=== PATIENT | male | born 1950 | race Caucasian/White ===

== ENCOUNTER → 2017-06-11 | Outpatient (CLI) | payer MEDICARE, OTHER, SELFPAY | PROVIDERS: Family Provider Family Medicine; Visit Provider Family Medicine | DX: G47.30 Sleep apnea, unspecified (principal); I10 Essential (primary) hypertension; R06.83 Snoring | CPT/HCPCS: G0399 ==

== ENCOUNTER → 2018-03-27 14:52 | Outpatient (CLI) | payer MEDICARE, OTHER, SELFPAY ==
--- NOTE | 2018-03-27 15:02 | XR_ITS ---
XR hip RT 2-3V w/pelvis HISTORY: Right hip pain ITS.REASON: RIGHT LUMBAR RADICULOPATHY ORDERING PHYSICIAN: Olu Moreno MD PATIENT AGE: 67 years COMPARISON: None FINDINGS: There are mild osteoarthritic changes of the hips as seen on an AP view of the pelvis with decrease in joint space osteophyte formation and mild sclerosis of acetabular roof. There is mild sclerosis of the right SI joint. No fracture or dislocation. IMPRESSION: Mild osteoarthritis of the hips
--- NOTE | 2018-03-27 15:02 | XR_ITS ---
EXAM: XR lumbar spine min 4V HISTORY: Low back pain ITS.REASON: RIGHT LUMBAR RADICULOPATHY ORDERING PHYSICIAN: Olu Moreno MD PATIENT AGE: 67 years COMPARISON: None FINDINGS: There is normal alignment. Mild degenerative disc disease is present from T12 to S1 with prominent anterior osteophytes of lower thoracic and upper lumbar spine consistent with DISH. There is minimal anterolisthesis of L4 3 mm. No fracture or dislocation. No lytic or blastic change. Mild facet arthritic changes L4-L5 and L5-S1. IMPRESSION: 1. No acute finding. 2. 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 3. Mild facet arthritic changes
== END ==
PROVIDERS: PCP Family Medicine; Visit Provider Family Medicine
DX: M54.16 Radiculopathy, lumbar region (principal); M25.551 Pain in right hip
CPT/HCPCS: 72110; 73502

== ENCOUNTER 2018-05-20 14:00 | Outpatient (RCR) | payer MEDICARE, OTHER, SELFPAY | END 2018-05-20 14:05 | disposition home or self-care (01) | LOC: PT 14:00 | PROVIDERS: Visit Provider Neurological Surgery | DX: M54.5 Low back pain (principal) | CPT/HCPCS: 97010; 97014; 97035; 97110; 97163; G0283 ==

== ENCOUNTER → 2019-11-26 14:42 | Outpatient (CLI) | payer MEDICARE, OTHER, SELFPAY | PROVIDERS: PCP Family Medicine; Visit Provider Family Medicine | DX: Z71.3 Dietary counseling and surveillance (principal); E11.9 Type 2 diabetes mellitus without complications | CPT/HCPCS: 97802 ==

== ENCOUNTER → 2021-03-26 10:27 | Outpatient (CLI) | payer MEDICARE, OTHER, SELFPAY | PROVIDERS: PCP Family Medicine; Visit Provider Nurse Practitioner | DX: Z20.822 Contact with and (suspected) exposure to COVID-19 (principal); U07.1 COVID-19 | CPT/HCPCS: C9803; U0003; U0005 ==

== ENCOUNTER → 2022-05-14 08:26 | Outpatient (CLI) | payer MEDICARE, SELFPAY ==
[2022-05-14 08:36] LABS: Microscopic, Urine URINE MICROSCOPIC (MICROSCOPIC)
[2022-05-14 09:02] LABS: Basophils # 0.1 K/mm3 (0-0.2); Basophils % 1.1 % (0.1-2.0); Eosinophils # 0.1 K/mm3 (0.0-0.4); Eosinophils % 2.1 % (0.1-12.0); Hematocrit 45.6 % (42.0-52.0); Hemoglobin 14.7 g/dL (14.1-18.0); Lymphocytes # 1.6 K/mm3 (0.7-4.5); Lymphocytes % 26.2 % (10-50); Mean Corpuscular HGB Conc 32.3 g/dL (31.8-35.4); Mean Corpuscular Hemoglobin 28.3 pg (27.0-31.2); Mean Corpuscular Volume 87.8 fl (80-94); Mean Platelet Volume 8.7 fl (7.4-10.4); Monocytes # 0.3 K/mm3 (0.1-1.0); Monocytes % 5.4 % (1.7-9.3); Neutrophils % 65.2 % (37.0-80.0); Platelet Count 280 K/mm3 (142-424); Red Blood Count 5.19 M/mm3 (4.60-6.20); Red Cell Distribution Width 14.7 % (11.5-17.5); White Blood Count 6.1 K/mm3 (4.8-10.8)
[2022-05-14 09:16] LABS: Hemoglobin A1C 8.3 % (4.0-6.0)
[2022-05-14 09:26] LABS: Chloride 100 mmol/L (98-107); Potassium 5.1 mmoL/L (3.5-5.1); Sodium 137 mmol/L (136-145)
[2022-05-14 09:28] LABS: Alanine Aminotransferase 31 U/L (12-78); Aspartate Amino Transferase 26 U/L (17-59); Blood Urea Nitrogen 23 mg/dl (9-20); Estimated Glomerular Filt Rate 96 ml/min (>60); GFR (African American) 116 ML/MIN (>60)
[2022-05-14 09:29] LABS: Albumin Level 4.2 g/dl (3.5-5.0); Albumin/Globulin Ratio 1.8 (1.1-1.8); Alkaline Phosphatase 77 U/L (38-126); Anion Gap 11.1 mEq/L (5-15); Calcium 9.4 mg/dl (8.4-10.2); Carbon Dioxide 31 mmol/L (22.0-30.0); Cholesterol 118 mg/dl (140-200); Globulin 2.3 g/dL (1.3-3.2); Glucose 172 mg/dl (74-100); HDL Cholesterol 33 mg/dl (40-60); Total Protein,Serum 6.5 g/dl (6.3-8.2); Triglycerides 127 mg/dl (30-150); VLDL Cholesterol 25 mg/dL (0-40)
[2022-05-14 09:30] LABS: Chol/HDL Ratio 3.6 (1-3.5)
[2022-05-14 09:40] LABS: Direct LDL Cholesterol 65.89 mg/dL (100-129)
[2022-05-14 10:00] LABS: Thyroid Stimulating Hormone 2.03 uIU/mL (0.465-4.68)
[2022-05-14 10:05] LABS: Prostate Specific Ag Screen 0.7 ng/ml (0.0-4.0)
[2022-05-14 10:46] LABS: Appearance,Urine CLEAR (Clear); Blood, Urine Negative (Negative); Color,Urine YELLOW (Yellow); Glucose,Urine (UA) Negative (Negative); Ketones,Urine Negative (Negative); Leukocyte Esterase,Urine Negative (Negative); Nitrate,Urine Negative (Negative); PH,Urine 5.5 (5.0-8.5); Protein,Urine Negative (Negative); Specific Gravity, Urine >= 1.030 (1.005-1.030); Urobilinogen,Urine 0.2 EU/dl (0.2)
[2022-05-14 10:50] LABS: Bilirubin,Urine 1+ (Negative)
[2022-05-14 10:58] LABS: Bacteria,Urine Trace /lpf; Mucus,Urine Trace /lpf; RBC,Urine Occasional #/hpf (0-3); Squamous Epithelial Cell,Urine Occasional #/hpf (0-5)
== END ==
PROVIDERS: PCP Family Medicine; Visit Provider Family Medicine
DX: E78.5 Hyperlipidemia, unspecified (principal); E11.9 Type 2 diabetes mellitus without complications; I10 Essential (primary) hypertension; Z12.5 Encounter for screening for malignant neoplasm of prostate; Z79.84 Long term (current) use of oral hypoglycemic drugs
CPT/HCPCS: 36415; 80053; 80061; 81001; 82043; 83036; 84443; 85025; G0103

== ENCOUNTER → 2022-08-13 09:16 | Outpatient (CLI) | payer MEDICARE, SELFPAY ==
[2022-08-13 11:03] LABS: Chloride 101 mmol/L (98-107); Potassium 5.3 mmoL/L (3.5-5.1); Sodium 138 mmol/L (136-145)
[2022-08-13 11:06] LABS: Alanine Aminotransferase 31 U/L (12-78); Albumin Level 4.1 g/dl (3.5-5.0); Albumin/Globulin Ratio 1.5 (1.1-1.8); Alkaline Phosphatase 78 U/L (38-126); Anion Gap 12.3 mEq/L (5-15); Aspartate Amino Transferase 23 U/L (17-59); Bilirubin,Total 1.1 mg/dl (0.2-1.3); Blood Urea Nitrogen 18 mg/dl (9-20); Calcium 8.8 mg/dl (8.4-10.2); Carbon Dioxide 30 mmol/L (22.0-30.0); Estimated Glomerular Filt Rate 95 ml/min (>60); GFR (African American) 115 ML/MIN (>60); Globulin 2.7 g/dL (1.3-3.2); Glucose 172 mg/dl (74-100); Total Protein,Serum 6.8 g/dl (6.3-8.2)
[2022-08-13 11:07] LABS: Hemoglobin A1C 8.9 % (4.0-6.0)
== END ==
PROVIDERS: PCP Family Medicine; Visit Provider Family Medicine
DX: E11.9 Type 2 diabetes mellitus without complications (principal); Z79.84 Long term (current) use of oral hypoglycemic drugs
CPT/HCPCS: 36415; 80053; 82043; 83036

== ENCOUNTER → 2022-11-13 08:36 | Outpatient (CLI) | payer MEDICARE, SELFPAY ==
[2022-11-13 09:15] LABS: Basophils % 0.4 % (0.1-2.0); Eosinophils # 0.2 K/mm3 (0.0-0.4); Eosinophils % 2.8 % (0.1-12.0); Hematocrit 44.9 % (42.0-52.0); Hemoglobin 14.3 g/dL (14.1-18.0); Lymphocytes # 1.5 K/mm3 (0.7-4.5); Lymphocytes % 25.8 % (10-50); Mean Corpuscular HGB Conc 31.8 g/dL (31.8-35.4); Mean Corpuscular Hemoglobin 27.4 pg (27.0-31.2); Mean Corpuscular Volume 86.1 fl (80-94); Mean Platelet Volume 7.9 fl (7.4-10.4); Monocytes # 0.4 K/mm3 (0.1-1.0); Monocytes % 6.1 % (1.7-9.3); Neutrophils # 3.8 K/mm3 (1.8-7.8); Neutrophils % 64.9 % (37.0-80.0); Platelet Count 268 K/mm3 (142-424); Red Blood Count 5.21 M/mm3 (4.60-6.20); Red Cell Distribution Width 14.9 % (11.5-17.5); White Blood Count 5.8 K/mm3 (4.8-10.8)
[2022-11-13 10:33] LABS: Alanine Aminotransferase 34 U/L (12-78); Alkaline Phosphatase 80 U/L (38-126); Aspartate Amino Transferase 27 U/L (17-59); Bilirubin,Indirect 1.1 mg/dL (0.0-0.9); Bilirubin,Total 1.1 mg/dl (0.2-1.3); Bilirubin,Unconjugated 1.3 mg/dL (0.0-1.1); Blood Urea Nitrogen 18 mg/dl (9-20); Estimated Glomerular Filt Rate 111 ml/min (>60); GFR (African American) 135 ML/MIN (>60); Total Protein,Serum 6.4 g/dl (6.3-8.2)
== END ==
PROVIDERS: PCP Family Medicine; Visit Provider Internal Medicine Rheumatology
DX: Z79.899 Other long term (current) drug therapy (principal)
CPT/HCPCS: 36415; 80076; 82565; 84520; 85025

== ENCOUNTER → 2023-04-21 12:04 | Outpatient (CLI) | payer MEDICARE, SELFPAY ==
[2023-04-21 10:40] LABS: Basophils % 0.2 % (0.1-2.0); Eosinophils # 0.1 K/mm3 (0.0-0.4); Eosinophils % 1.4 % (0.1-12.0); Hematocrit 43.1 % (42.0-52.0); Hemoglobin 14.5 g/dL (14.1-18.0); Lymphocytes # 1.4 K/mm3 (0.7-4.5); Lymphocytes % 26.2 % (10-50); Mean Corpuscular HGB Conc 33.7 g/dL (31.8-35.4); Mean Corpuscular Volume 86.1 fl (80-94); Mean Platelet Volume 8.2 fl (7.4-10.4); Monocytes # 0.3 K/mm3 (0.1-1.0); Monocytes % 5.9 % (1.7-9.3); Neutrophils # 3.6 K/mm3 (1.8-7.8); Neutrophils % 66.2 % (37.0-80.0); Platelet Count 251 K/mm3 (142-424); Red Blood Count 5.01 M/mm3 (4.60-6.20); White Blood Count 5.5 K/mm3 (4.8-10.8)
[2023-04-21 11:27] LABS: Alanine Aminotransferase 32 U/L (12-78); Albumin Level 4.5 g/dl (3.5-5.0); Albumin/Globulin Ratio 1.8 (1.1-1.8); Alkaline Phosphatase 80 U/L (38-126); Anion Gap 16.2 mEq/L (5-15); Aspartate Amino Transferase 30 U/L (17-59); Bilirubin,Total 1.2 mg/dl (0.2-1.3); Blood Urea Nitrogen 22 mg/dl (9-20); Calcium 8.9 mg/dl (8.4-10.2); Carbon Dioxide 29 mmol/L (22.0-30.0); Chloride 97 mmol/L (98-107); Chol/HDL Ratio 3.9 (1-3.5); Cholesterol 121 mg/dl (140-200); Estimated Glomerular Filt Rate 95 ml/min (>60); GFR (African American) 115 ML/MIN (>60); Globulin 2.5 g/dL (1.3-3.2); Glucose 134 mg/dl (74-100); HDL Cholesterol 31 mg/dl (40-60); Potassium 5.2 mmoL/L (3.5-5.1); Sodium 137 mmol/L (136-145); Triglycerides 126 mg/dl (30-150); VLDL Cholesterol 25 mg/dL (0-40)
[2023-04-21 11:39] LABS: Direct LDL Cholesterol 75.65 mg/dL (100-129)
[2023-04-21 11:44] LABS: 25-OH Vitamin D, Total 27.7 ng/mL (30-100)
[2023-04-21 12:56] LABS: Hemoglobin A1C 7.9 % (4.0-6.0)
== END ==
PROVIDERS: PCP Nurse Practitioner Family; Visit Provider Nurse Practitioner Family
DX: I10 Essential (primary) hypertension (principal); E78.5 Hyperlipidemia, unspecified; E55.9 Vitamin D deficiency, unspecified; E11.9 Type 2 diabetes mellitus without complications; Z79.84 Long term (current) use of oral hypoglycemic drugs
CPT/HCPCS: 80053; 80061; 82306; 83036; 85025

== ENCOUNTER 2023-07-22 13:31 | Outpatient (CLI) | payer MEDICARE, SELFPAY ==
[2023-07-22 14:01] LABS: Chloride 99 mmol/L (98-107); Potassium 4.6 mmoL/L (3.5-5.1); Sodium 136 mmol/L (136-145)
[2023-07-22 14:04] LABS: Alanine Aminotransferase 35 U/L (12-78); Albumin Level 4.5 g/dl (3.5-5.0); Albumin/Globulin Ratio 1.6 (1.1-1.8); Alkaline Phosphatase 91 U/L (38-126); Anion Gap 14.6 mEq/L (5-15); Aspartate Amino Transferase 28 U/L (17-59); Bilirubin,Total 1.3 mg/dl (0.2-1.3); Blood Urea Nitrogen 23 mg/dl (9-20); Carbon Dioxide 27 mmol/L (22.0-30.0); Cholesterol 147 mg/dl (140-200); Estimated Glomerular Filt Rate 95 ml/min (>60); GFR (African American) 115 ML/MIN (>60); Globulin 2.8 g/dL (1.3-3.2); Total Protein,Serum 7.3 g/dl (6.3-8.2); Triglycerides 142 mg/dl (30-150); VLDL Cholesterol 28 mg/dL (0-40)
[2023-07-22 14:05] LABS: Calcium 9.1 mg/dl (8.4-10.2); Chol/HDL Ratio 4.3 (1-3.5); Glucose 252 mg/dl (74-100); HDL Cholesterol 34 mg/dl (40-60)
[2023-07-22 14:16] LABS: Direct LDL Cholesterol 89.66 mg/dL (100-129)
[2023-07-22 14:20] LABS: Free T4 (Free Thyroxine) 1.33 ng/dl (0.78-2.19)
[2023-07-22 14:36] LABS: Thyroid Stimulating Hormone 1.44 uIU/mL (0.465-4.68)
[2023-07-22 16:54] LABS: Hemoglobin A1C 8.8 % (4.0-6.0)
== END 2023-07-22 23:59 ==
LOC: LAB.DROPOF 13:32
PROVIDERS: PCP Nurse Practitioner Family; Visit Provider Nurse Practitioner Family
DX: R53.83 Other fatigue (principal); E11.9 Type 2 diabetes mellitus without complications; E78.5 Hyperlipidemia, unspecified; Z79.84 Long term (current) use of oral hypoglycemic drugs
CPT/HCPCS: 80053; 80061; 83036; 84439; 84443

== ENCOUNTER → 2023-08-04 09:26 | Outpatient (POV) | payer MEDICARE, SELFPAY ==
[2023-08-04 09:54] VITALS: BP 147/76; PULSE 89; RESP 20; O2SAT 95; BMI 37.2
--- NOTE | 2023-08-04 10:25 | EXP.PAIN.OV ---
HPI Data of Consult Patient: new to practice Consult date: 08/04/23 Requesting Physician: Britni Hyatt APRN Primary Care Provider: Noy Ann APRN Consult Narrative Reason for consult: Low back pain, bilateral hip pain History of present illness: Mr. Cisse is a 73 year old male who presents today as a new patient. He is a referral from Noy Ann's office. Today he rates his pain a 8 out of 10. Patient states his pain is all in his low back and bilateral hips and describes this as an aching sensation with occasional sharp shooting pains that does have numbness and tingling. Patient denies any radiating symptoms into his lower extremities/feet. Patient does state that this has been going on since around last fall. He does state that he had low back issues for years that progressively worsened with time. He denies denies any specific trauma or injury that started last fall. He states the pain is worse with prolonged standing or walking and frequently he feels like his legs made to go to give out. He does state the pain interferes with his ability to perform activities of daily living such as cooking and cleaning. Patient does state the right side is worse than the left. He denies any previous surgery or injection history. He states that in the past he did get injections for his right shoulder and left hip and that these did work well however his psych coordinator and primary care provider did discuss that he was not were recommended further due to his diabetes. Patient does state that he typically will average around 140s in the morning however back around May he was unable to get his Trulicity for a month due to it being out of stock. He states his sugar was higher during this time and that he is just now back on the medication over the last week. Patient is interested in any help we may be able to provide. Patient denies any advanced imaging. Patient is currently managed with tramadol 50 mg 4 times a day from an outside provider. His Deric has been reviewed and is appropriate. CC: Britni Hyatt APRN [facility] Disclaimer: The information contained in this section may have been updated after the patient was seen, as this information can be updated by other users. Medical History (Updated 08/04/23 @ 10:30 by Britni Hyatt APRN) Arthritis DDD (degenerative disc disease) Diabetes mellitus Hyperlipidemia Hypertension Osteoarthritis Rheumatoid arthritis Surgical History H/O colonoscopy H/O mastoidectomy History of appendectomy History of tonsillectomy Family History Father Cancer lung Mother Coronary artery disease Diabetes Hyperlipidemia Hypertension Brother Cancer lung Hyperlipidemia Hypertension Sister Diabetes Daughter Cancer cervical Social History (Updated 08/04/23 @ 09:55 by Madalyn Jeronimo RN) Smoking Status: Never smoker alcohol intake: former year quit: 1983 substance use type: denies use current occupational status: retired and other Travel in the last 8 weeks: None marital status: number of children: 3 Review of Systems Review of Systems Review of systems:: pertinent systems reviewed and negative unless documented below Review of systems (narrative): Review of Systems: General: No recent weight changes, no fever, no sleep disturbances Respiratory: No cough, no shortness of air, no recurring pulmonary infections Cardiovascular/peripheral vascular: No chest pain, no palpitations, no edema, no shortness of breath Gastrointestinal: No new onset incontinence, normal bowel movements reported Genitourinary: No new onset incontinence Musculoskeletal: Low back pain, bilateral hip pain Psychiatric: [Normal mood/affect] Neurological: [Denies weakness in extremities], [denies balance issues] Meds Home Medications and Allergies Home Medications Medication Instructions Recorded Confirmed Type omeprazole 40 mg capsule,delayed 40 mg PO DAILY 05/03/22 07/22/23 History release tramadol 50 mg tablet 50 mg PO DAILY 05/03/22 07/22/23 History amlodipine 5 mg tablet 5 mg PO DAILY 07/22/23 History atorvastatin 20 mg tablet 20 mg PO HS 07/22/23 History glimepiride 4 mg tablet 8 mg PO DAILY 07/22/23 History lancets (Unilet GP Lancet) #100 ea 07/22/23 07/22/23 History levocetirizine 5 mg tablet 5 mg PO DAILY 07/22/23 History metformin 1,000 mg tablet 1,000 mg PO BID 07/22/23 History naproxen 500 mg tablet 500 mg PO DAILY 07/22/23 07/22/23 History olmesartan 40 mg tablet 40 mg PO DAILY 07/22/23 History pioglitazone 45 mg tablet 45 mg PO DAILY 07/22/23 History dulaglutide 4.5 mg/0.5 mL 4.5 mg (0.5 mL) SQ WEEKLY #2 mL 07/24/23 Rx subcutaneous pen injector (Trulicity) New Prescriptions to Start Prescriptions: Allergies Allergy/AdvReac Type Severity Reaction Status Date / Time No Known Allergies Allergy Verified 07/22/23 09:30 Objective Vital signs: Pulse Resp BP Pulse Ox O2 Del Method 89 20 147/76 H 95 Room Air 08/04/23 09:54 08/04/23 09:54 08/04/23 09:54 08/04/23 09:54 08/04/23 09:54 Narrative: Physical Exam: General: Alert and oriented x3, no acute distress, pleasant and cooperative Lungs: Respirations even and unlabored, symmetrical chest expansion Eyes: PERRL Musculoskeletal: Flexion and extension of lumbar [spine] somewhat guarded secondary to pain, [antalgic gait noted] point tenderness along bilateral SIs with positive bilateral Khadar's, Kaylen's, Gaenslen's, compression and distraction exam Neurological: Speech clear, no gross sensory deficit Additional findings Additional findings: FINDINGS: There is normal alignment. Mild degenerative disc disease is present from T12 to S1 with prominent anterior osteophytes of lower thoracic and upper lumbar spine consistent with DISH. There is minimal anterolisthesis of L4 3 mm. No fracture or dislocation. No lytic or blastic change. Mild facet arthritic changes L4-L5 and L5-S1. IMPRESSION: 1. No acute finding. 2. 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 3. Mild facet arthritic changes Dictated By: Amos Adrian MD Signed By: <Electronically signed by Amos Adrian MD in OV> 03/27/18 1535 DD/ 1534 Assessment and Plan *Assessment and plan (1) Bilateral sacroiliitis: Status: Acute Category: Medical Code(s): M46.1 - Sacroiliitis, not elsewhere classified Plan Patient is experiencing worsening pain in around his low back and bilateral hips. Patient had limited range of motion of his lumbar spine along with point tenderness at his bilateral SIs with positive bilateral Khadar's, Kaylen's, Gaenslen's, compression and distraction exam. I have discussed with patient that he may benefit from bilateral SI injections. Risk and benefits were discussed with patient and he would like to proceed forward with this plan of care. Patient is not on any blood thinners. I have discussed with the patient to check his sugar the morning of this injection and if it is close to 300 to call our office to reschedule his appointment or that if he comes to the hospital and his sugar is close to 300 we will reschedule him. Patient will be scheduled for bilateral SI injections under fluoroscopy. Patient has been instructed to contact the clinic with any concerns before the next appointment. Dr. Zaidi has reviewed this note and agrees with this plan of care. This note was dictated using voice recognition software and make contain errors or omissions.
== END ==
LOC: SC.PAIN 09:28
PROVIDERS: PCP Nurse Practitioner Family; Visit Provider Nurse Practitioner Family
DX: M46.1 Sacroiliitis, not elsewhere classified (principal); M54.50 Low back pain, unspecified; M25.551 Pain in right hip; M25.552 Pain in left hip
CPT/HCPCS: 99202; G0463

== ENCOUNTER 2023-08-26 09:04 | Day surgery (SDC) | payer MEDICARE, SELFPAY ==
[2023-08-26 09:20] VITALS: BP 146/75; PULSE 94; RESP 18; TEMP 36.3; O2SAT 99; BMI 36.5
--- NOTE | 2023-08-26 09:32 | P.PCN_ITS ---
Procedure Date: 08/26/23 Time: 09:25 Anesthesiologist:: Kevin Trejo CRNA Complications:: None Pre-procedure Diagnosis:: Bilateral sacroiliitis. Post-procedure Diagnosis:: Same. Indications for Procedure:: Patient is a very pleasant 73-year-old male comes our clinic today for bilateral sacroiliac joint injection. Patient has extreme point tenderness over the bilateral sacroiliac joints. Patient describes having difficulty transitioning from sitting to standing. He has low lumbar back pain off the midline intensifies with ambulation or sitting for any length of time. He rates his pain 8/10. Procedure Details:: Procedure: Bilateral sacroiliac joint injections under fluoroscopy Informed consent was obtained and the risks and benefits of the procedure were explained to the patient.~ The patient was taken to the procedure room and noninvasive monitors were placed including a noninvasive blood pressure cuff and pulse oximeter.~ The patient was placed prone on the procedure table. Both hips were cleansed using Betadine as a cleansing solution. C-arm fluoroscopy was used to view the right sacroiliac joint.~ The skin and subcutaneous tissues were anesthetized using lidocaine 1.5% and a 25-gauge needle.~ After this, a 22-gauge spinal needle was inserted under fluoroscopic guidance into the inferior aspect of the right sacroiliac joint.~ Omnipaque dye was injected and good spread was seen throughout the joint.~ After this, approximately 5 mL of bupivacaine, 0.25% and Depo-Medrol, 40 mg was incrementally injected into the right sacroiliac joint. We then moved to the left sacroiliac joint.~ The skin and subcutaneous tissues were anesthetized using lidocaine 1.5% and a 25-gauge needle.~ After this, a 22- gauge spinal needle was inserted under fluoroscopic guidance into the inferior aspect of the left sacroiliac joint.~ Omnipaque dye was injected and good spread was seen throughout the joint. After this, approximately 5 mL of bupivacaine, 0.25% and Depo-Medrol, 40 mg was incrementally injected into the left sacroiliac joint.~ The patient tolerated the procedure well with no complications. The patient was observed in the Pain Clinic and then was discharged home neurologically intact. Plan and Disposition:: Patient was discharged without incident.
[2023-08-26 09:40] VITALS: BP 151/79; PULSE 85; RESP 18; O2SAT 98
[2023-08-26] MEDS: methylPREDNISolone ACETATE 80MG/ML VIAL 80 MG (09:59)
[2023-08-26] MEDS: LIDOCAINE 1% 5ML PF VIAL 5 ML (09:59)
[2023-08-26 10:00] VITALS: BP 150/94; PULSE 79; RESP 18; O2SAT 97
[2023-08-26] MEDS: BUPIVACAINE 0.25% 10ML INJ 25 MG IJ (10:00)
[2023-08-26 10:02] VITALS: BP 150/94; PULSE 79; RESP 18; O2SAT 97
== END 2023-08-26 09:40 | disposition home or self-care (01) ==
PROVIDERS: PCP Nurse Practitioner Family; Visit Provider Nurse Anesthetist, Certified Registered
DX: M46.1 Sacroiliitis, not elsewhere classified (principal)
CPT/HCPCS: 27096; 77002; G0260; J1040

== ENCOUNTER 2023-09-08 11:29 | Outpatient (POV) | payer MEDICARE, SELFPAY ==
[2023-09-08 11:54] VITALS: BP 142/79; PULSE 86; RESP 18; TEMP 36.6; O2SAT 99; BMI 36.3
--- NOTE | 2023-09-08 11:58 | A.OFFVIS_ITS ---
[facility] Pain Management SOAP Note Subjective:: Patient is a pleasant 73-year-old male who presents today for follow-up of bilateral SI injection. Today he rates his pain a 0 out of 10. Patient states he has had 100% improvement following his injections and still feels like they are currently helping. Patient states that he has been able to increase his activity with decreased pain symptoms and feels much more functional. He does state that he still walks with a slight limp but overall is very pleased with how he has done. His Deric has been reviewed and is appropriate. Review of Systems: General: No recent weight changes, no fever, no sleep disturbances Respiratory: No cough, no shortness of air, no recurring pulmonary infections Cardiovascular/peripheral vascular: No chest pain, no palpitations, no edema, no shortness of breath Gastrointestinal: No new onset incontinence, normal bowel movements reported Genitourinary: No new onset incontinence Musculoskeletal: Low back pain Psychiatric: [Normal mood/affect] Neurological: [Denies weakness in extremities], [denies balance issues] Objective:: Physical Exam: General: Alert and oriented x3, no acute distress, pleasant and cooperative Lungs: Respirations even and unlabored, symmetrical chest expansion Eyes: PERRL Musculoskeletal: Flexion and extension of lumbar [spine] somewhat guarded secondary to pain, [antalgic gait noted] Neurological: Speech clear, no gross sensory deficit Assessment:: Low back pain with bilateral sacroiliitis, bilateral hip pain Plan:: Patient has had 100% relief following this injections and does not require any additional injection therapy. Patient will return to clinic in 1 month for reevaluation of symptoms and plan of care. Patient has been instructed to contact the clinic with any concerns before the next appointment. Dr. Zaidi has reviewed this note and agrees with this plan of care. This note was dictated using voice recognition software and make contain errors or omissions. [facility] Disclaimer: The information contained in this section may have been updated after the reji mujica was seen, as this information can be updated by other users. Medical History Osteoarthritis Diabetes mellitus Rheumatoid arthritis Hypertension Arthritis Hyperlipidemia DDD (degenerative disc disease) Surgical History H/O colonoscopy H/O mastoidectomy History of appendectomy History of tonsillectomy Family History Father Cancer lung Mother Coronary artery disease Diabetes Hyperlipidemia Hypertension Brother Cancer lung Hyperlipidemia Hypertension Sister Diabetes Daughter Cancer cervical Social History Smoking Status: Never smoker alcohol intake: former year quit: 1983 substance use type: denies use current occupational status: other Travel in the last 8 weeks: None marital status: number of children: 3
== END 2023-09-08 23:59 ==
LOC: SC.PAIN 11:29
PROVIDERS: PCP Nurse Practitioner Family; Visit Provider Nurse Practitioner Family
DX: M54.50 Low back pain, unspecified (principal); M46.1 Sacroiliitis, not elsewhere classified; M25.551 Pain in right hip; M25.552 Pain in left hip
CPT/HCPCS: 99212; G0463

== ENCOUNTER 2023-11-20 18:00 | Outpatient (CLI) | payer MEDICARE, SELFPAY ==
[2023-11-20 12:45] LABS: Microscopic, Urine URINE MICROSCOPIC (MICROSCOPIC)
[2023-11-20 13:56] LABS: Anion Gap 15.3 mEq/L (5-15); Blood Urea Nitrogen 22 mg/dl (9-20); Calcium 9.2 mg/dl (8.4-10.2); Carbon Dioxide 31 mmol/L (22.0-30.0); Chloride 96 mmol/L (98-107); Chol/HDL Ratio 3.3 (1-3.5); Cholesterol 113 mg/dl (140-200); Estimated Glomerular Filt Rate 73 ml/min (>60); GFR (African American) 89 ML/MIN (>60); Glucose 181 mg/dl (74-100); HDL Cholesterol 34 mg/dl (40-60); Potassium 5.3 mmoL/L (3.5-5.1); Sodium 137 mmol/L (136-145); Triglycerides 149 mg/dl (30-150); VLDL Cholesterol 30 mg/dL (0-40)
[2023-11-20 14:06] LABS: Direct LDL Cholesterol 69.94 mg/dL (100-129)
[2023-11-20 14:14] LABS: 25-OH Vitamin D, Total 51.7 ng/mL (30-100)
[2023-11-20 14:28] LABS: Prostate Specific Ag Screen 0.8 ng/ml (0.0-4.0)
[2023-11-20 14:47] LABS: Vitamin B12 252 pg/mL (239-931)
[2023-11-20 15:03] LABS: Hemoglobin A1C 8.3 % (4.0-6.0)
[2023-11-20 18:28] LABS: Appearance,Urine CLEAR (Clear); Blood, Urine Negative (Negative); Color,Urine YELLOW (Yellow); Glucose,Urine (UA) TRACE (Negative); Ketones,Urine TRACE (Negative); Leukocyte Esterase,Urine Negative (Negative); Nitrate,Urine Negative (Negative); PH,Urine 5.5 (5.0-8.5); Protein,Urine TRACE (Negative); Specific Gravity, Urine >= 1.030 (1.005-1.030); Urobilinogen,Urine 0.2 EU/dl (0.2)
[2023-11-20 19:02] LABS: Bilirubin,Urine 1+ (Negative)
[2023-11-20 19:03] LABS: Bacteria,Urine Trace /lpf; Mucus,Urine 2+ /lpf; Squamous Epithelial Cell,Urine Occasional #/hpf (0-5); WBC,Urine Occasional #/hpf (0-3)
== END 2023-11-20 23:59 | disposition home or self-care (01) ==
LOC: LAB.DROPOF 11-21 07:24
PROVIDERS: PCP Nurse Practitioner Family; Visit Provider Nurse Practitioner Family
DX: E55.9 Vitamin D deficiency, unspecified (principal); R53.83 Other fatigue; E78.5 Hyperlipidemia, unspecified; E11.9 Type 2 diabetes mellitus without complications; R39.9 Unspecified symptoms and signs involving the genitourinary system; Z12.5 Encounter for screening for malignant neoplasm of prostate; Z68.36 Body mass index [BMI] 36.0-36.9, adult; Z79.84 Long term (current) use of oral hypoglycemic drugs; Z79.85 Long-term (current) use of injectable non-insulin antidiabetic drugs
CPT/HCPCS: 80048; 80061; 81001; 82306; 82607; 83036; 87086; G0103

== ENCOUNTER 2024-02-19 09:36 | Outpatient (CLI) | payer MEDICARE, SELFPAY ==
[2024-02-19 14:57] LABS: Blood Urea Nitrogen 21 mg/dl (9-20); Calcium 8.7 mg/dl (8.4-10.2); Carbon Dioxide 28 mmol/L (22.0-30.0); Chloride 101 mmol/L (98-107); Cholesterol 110 mg/dl (140-200); Estimated Glomerular Filt Rate 95 ml/min (>60); GFR (African American) 115 ML/MIN (>60); Glucose 162 mg/dl (74-100); Sodium 135 mmol/L (136-145); Triglycerides 122 mg/dl (30-150); VLDL Cholesterol 24 mg/dL (0-40)
[2024-02-19 14:58] LABS: Anion Gap 11.4 mEq/L (5-15); Chol/HDL Ratio 3.4 (1-3.5); HDL Cholesterol 32 mg/dl (40-60); Potassium 5.4 mmoL/L (3.5-5.1)
[2024-02-19 15:07] LABS: Direct LDL Cholesterol 65.28 mg/dL (100-129)
[2024-02-19 16:46] LABS: Hemoglobin A1C 7.6 % (4.0-6.0)
[2024-02-19 17:13] LABS: Microscopic, Urine URINE MICROSCOPIC (MICROSCOPIC)
[2024-02-19 18:06] LABS: Creatinine,Urine Random 106 mg/dL (Not Estab.); Total Protein,Urine Random < 5.0 mg/dL (0.0-12.0)
[2024-02-19 18:10] LABS: Microalbumin/Creatinine Ratio 17.1
[2024-02-19 18:28] LABS: Appearance,Urine CLEAR (Clear); Bilirubin,Urine Negative (Negative); Blood, Urine Negative (Negative); Color,Urine YELLOW (Yellow); Glucose,Urine (UA) Negative (Negative); Ketones,Urine Negative (Negative); Leukocyte Esterase,Urine Negative (Negative); Nitrate,Urine Negative (Negative); Protein,Urine Negative (Negative); Specific Gravity, Urine <= 1.005 (1.005-1.030); Urobilinogen,Urine 0.2 EU/dl (0.2)
[2024-02-19 18:59] LABS: Squamous Epithelial Cell,Urine Occasional #/hpf (0-5)
== END 2024-02-19 23:59 | disposition home or self-care (01) ==
LOC: LAB.DROPOF 02-20 09:48
PROVIDERS: PCP Nurse Practitioner Family; Visit Provider Nurse Practitioner Family
DX: E11.9 Type 2 diabetes mellitus without complications (principal); E78.5 Hyperlipidemia, unspecified; I10 Essential (primary) hypertension; R39.9 Unspecified symptoms and signs involving the genitourinary system; M54.50 Low back pain, unspecified
CPT/HCPCS: 80048; 80061; 81001; 82043; 82570; 83036; 84156; 87086

== ENCOUNTER 2024-05-24 14:37 | Outpatient (CLI) | payer MEDICARE, SELFPAY ==
[2024-05-24 14:12] LABS: Basophils % 0.5 % (0.1-2.0); Eosinophils # 0.1 K/mm3 (0.0-0.4); Eosinophils % 1.6 % (0.1-12.0); Hematocrit 43.1 % (42.0-52.0); Hemoglobin 14.4 g/dL (14.1-18.0); Lymphocytes # 1.7 K/mm3 (0.7-4.5); Lymphocytes % 24.9 % (10-50); Mean Corpuscular HGB Conc 33.5 g/dL (31.8-35.4); Mean Corpuscular Hemoglobin 28.8 pg (27.0-31.2); Mean Corpuscular Volume 86.1 fl (80-94); Monocytes # 0.5 K/mm3 (0.1-1.0); Monocytes % 6.7 % (1.7-9.3); Neutrophils # 4.5 K/mm3 (1.8-7.8); Neutrophils % 66.3 % (37.0-80.0); Platelet Count 283 K/mm3 (142-424); Red Blood Count 5.01 M/mm3 (4.60-6.20); Red Cell Distribution Width 14.8 % (11.5-17.5); White Blood Count 6.8 K/mm3 (4.8-10.8)
[2024-05-24 14:58] LABS: Chloride 100 mmol/L (98-107)
[2024-05-24 14:59] LABS: Potassium 5.4 mmoL/L (3.5-5.1); Sodium 137 mmol/L (136-145)
[2024-05-24 15:01] LABS: Blood Urea Nitrogen 25 mg/dl (9-20); Estimated Glomerular Filt Rate 83 ml/min (>60); GFR (African American) 100 ML/MIN (>60)
[2024-05-24 15:02] LABS: Anion Gap 16.4 mEq/L (5-15); Calcium 8.8 mg/dl (8.4-10.2); Carbon Dioxide 26 mmol/L (22.0-30.0); Cholesterol 101 mg/dl (140-200); Glucose 155 mg/dl (74-100); HDL Cholesterol 29 mg/dl (40-60); Triglycerides 120 mg/dl (30-150); VLDL Cholesterol 24 mg/dL (0-40)
[2024-05-24 15:03] LABS: Chol/HDL Ratio 3.5 (1-3.5)
[2024-05-24 15:13] LABS: Direct LDL Cholesterol 59.46 mg/dL (100-129)
[2024-05-24 16:13] LABS: Hemoglobin A1C 7.4 % (4.0-6.0)
== END 2024-05-24 23:59 | disposition home or self-care (01) ==
LOC: LAB.DROPOF 14:38
PROVIDERS: PCP Nurse Practitioner Family; Visit Provider Nurse Practitioner Family
DX: E11.9 Type 2 diabetes mellitus without complications (principal); R53.83 Other fatigue; I10 Essential (primary) hypertension; E78.5 Hyperlipidemia, unspecified
CPT/HCPCS: 80048; 80061; 83036; 85025

== ENCOUNTER 2024-08-26 13:38 | Outpatient (CLI) | payer MEDICARE, SELFPAY ==
[2024-08-26 11:43] LABS: Albumin Level 4.4 g/dl (3.5-5.0); Chloride 99 mmol/L (98-107); Potassium 5.5 mmoL/L (3.5-5.1); Sodium 137 mmol/L (136-145)
[2024-08-26 11:45] LABS: Alanine Aminotransferase 32 U/L (12-78); Aspartate Amino Transferase 26 U/L (17-59); Blood Urea Nitrogen 19 mg/dl (9-20); Estimated Glomerular Filt Rate 83 ml/min (>60); GFR (African American) 100 ML/MIN (>60)
[2024-08-26 11:46] LABS: Albumin/Globulin Ratio 1.9 (1.1-1.8); Alkaline Phosphatase 89 U/L (38-126); Anion Gap 15.5 mEq/L (5-15); Bilirubin,Total 1.3 mg/dl (0.2-1.3); Calcium 9.2 mg/dl (8.4-10.2); Carbon Dioxide 28 mmol/L (22.0-30.0); Cholesterol 110 mg/dl (140-200); Globulin 2.3 g/dL (1.3-3.2); Glucose 186 mg/dl (74-100); Total Protein,Serum 6.7 g/dl (6.3-8.2); Triglycerides 132 mg/dl (30-150); VLDL Cholesterol 26 mg/dL (0-40)
[2024-08-26 11:47] LABS: Chol/HDL Ratio 3.4 (1-3.5); HDL Cholesterol 32 mg/dl (40-60)
[2024-08-26 12:03] LABS: Free T4 (Free Thyroxine) 1.58 ng/dl (0.78-2.19)
[2024-08-26 12:17] LABS: Thyroid Stimulating Hormone 1.51 uIU/mL (0.465-4.68)
[2024-08-26 12:27] LABS: HIV Combo NEGATIVE (Negative)
[2024-08-26 12:34] LABS: Hepatitis C Ab Qual. W/ RFX NEGATIVE (Negative)
[2024-08-26 12:54] LABS: Vitamin B12 264 pg/mL (239-931)
[2024-08-26 18:46] LABS: Microscopic, Urine URINE MICROSCOPIC (MICROSCOPIC)
[2024-08-26 19:38] LABS: Creatinine,Urine Random 480 mg/dL (Not Estab.); Microalbumin/Creatinine Ratio 28.2
[2024-08-26 21:06] LABS: Appearance,Urine Clear (Clear); Color,Urine Yellow (Yellow); Glucose,Urine (UA) Negative (Negative); Protein,Urine 1+ (Negative); Specific Gravity, Urine >= 1.030 (1.005-1.030)
[2024-08-26 21:07] LABS: Bilirubin,Urine 1+ (Negative); Blood, Urine Negative (Negative); Ketones,Urine Trace (Negative); Leukocyte Esterase,Urine Negative (Negative); Nitrate,Urine Negative (Negative); Urobilinogen,Urine 0.2 EU/dl (0.2)
[2024-08-26 22:12] LABS: Bacteria,Urine 1+ /lpf; Mucus,Urine 4+ /lpf
== END 2024-08-26 23:59 | disposition home or self-care (01) ==
LOC: LAB.DROPOF 13:38
PROVIDERS: PCP Nurse Practitioner Family; Visit Provider Nurse Practitioner Family
DX: R80.9 Proteinuria, unspecified (principal); E11.9 Type 2 diabetes mellitus without complications; E78.5 Hyperlipidemia, unspecified; I10 Essential (primary) hypertension; R41.3 Other amnesia; G47.33 Obstructive sleep apnea (adult) (pediatric); Z11.4 Encounter for screening for human immunodeficiency virus [HIV]; Z11.59 Encounter for screening for other viral diseases
CPT/HCPCS: 80053; 80061; 81001; 82043; 82570; 82607; 83036; 84156; 84439; 84443; 86803; 87086; 87389

== ENCOUNTER 2024-09-09 15:01 | Outpatient (CLI) | payer MEDICARE, SELFPAY ==
[2024-09-09 17:00] LABS: Chloride 98 mmol/L (98-107); Potassium 4.9 mmoL/L (3.5-5.1); Sodium 137 mmol/L (136-145)
[2024-09-09 17:03] LABS: Anion Gap 16.9 mEq/L (5-15); Blood Urea Nitrogen 19 mg/dl (9-20); Calcium 9.2 mg/dl (8.4-10.2); Carbon Dioxide 27 mmol/L (22.0-30.0); Estimated Glomerular Filt Rate 83 ml/min (>60); GFR (African American) 100 ML/MIN (>60); Glucose 178 mg/dl (74-100)
== END 2024-09-09 23:59 | disposition home or self-care (01) ==
LOC: LAB.DROPOF 15:01
PROVIDERS: PCP Nurse Practitioner Family; Visit Provider Nurse Practitioner Family
DX: I10 Essential (primary) hypertension (principal); E87.5 Hyperkalemia
CPT/HCPCS: 80048

== ENCOUNTER 2025-01-20 11:06 | Outpatient (CLI) | payer MEDICARE, SELFPAY ==
--- OUTSIDE RECORDS SUMMARY | 2025-01-10 11:30 | XMS_ITS | Encounter Summary ---
Author Organization [facility] Address [address] [place] [address] Care Team Providers Care Plumber Maintenance Name Role Phone Kevin Richards MD Unavailable [phone] Reason for Visit * Reason Comments Arthritis Primary generalized (osteo)arthritis Encounter Details Date Type Department Care Team (Latest Contact Info) Description 01/10/2025 11:30 AM EDT Office Visit [facility] [address] [place] [address] May Stevens, EQUIPMENT DETAILER [address] [place] [address] Primary generalized (osteo)arthritis (Primary Dx); Lumbar spondylosis; Encounter for long-term (current) use of high-risk medication; Long-term current use of opiate analgesic Social History Tobacco Use Types Packs/Day Years Used Date Smoking Tobacco: Never Smokeless Tobacco: Current Chew Tobacco Cessation:Ready to Q uit: Not Asked; Counseling Given: Not Answered Sex and Gender Information Value Date Recorded Sex Assigned at Not on file Legal Sex Male 11:21 AM EST Gender Identity Not on file Sexual Orientation Not on file documented as of this encounter Last Filed Vital Signs Vital Sign Reading Time Taken Comments Blood Pressure 138/88 01/10/2025 11:26 AM EDT Pulse - - Temperature 36.2 C (97.2 F) 01/10/2025 11:26 AM EDT Respiratory Rate - - Oxygen Saturation - - Inhaled Oxygen Concentration - - Weight 107.7 kg (237 lb 6.4 oz) 025 11:26 AM EDT Height 172.7 cm (5' 8 ) 01/10/2025 11:2 6 AM EDT Body Mass Index 36.1 01/10/2025 11:26 AM EDT documented in this encounter Ordered Prescriptions Prescription Sig Dispense Quantity Refills Last Filled Start Date End Date omeprazole (PRILOSEC) 40 mg Oral Capsule, Delayed Release(E.C.)Indic ations:Encounter for long-term (current) use of high-risk medication Take 1 Capsule by mouth daily. 90 Capsule 1 01/10/2025 traMADoL (ULTRAM) 50 mg Oral TabletIndications: Primary generalized (osteo)arthritis Take 1 Tablet by mouth 4 times daily as needed. for pain 120 Tablet 5 01/10/2025 naproxen (NAPROSYN) 500 mg Oral TabletIndications: Primary generalized (osteo)arthritis Take 1 Tablet by mouth daily. 90 Tablet 1 01/10/2025 documented in this encounter Progress Notes * May Stevens APRN - 01/10/2025 11:30 AM EDT Images from the original note were not included. Subjective Subjective: Patient ID: Amos Cisse is a 74 y.o. male. Chief Complaint Patient presents with Arthritis Primary generalized (osteo)arthritis HPI: Amos Cisse is a 74 y.o.malewho presents for a routine follow-up for osteoarthritis. He reports 6.5/10 aching throbbing pain, located in the knees, right shoulder and hands, worse with activity, alleviated with rest, associated with stiffness which resolves within twenty minutes. The pain / function / disease activity questionnaire was filled out by the patient and reviewed with me. Function on mHAQ = 4.3/10 Pain on 10-cm VAS = 6.5/10 Disease Activity on RAPID 3 =5.3/10 REVIEW OF SYSTEMS The patient denies fever, weight loss, rash, weakness, nausea, vomiting, abdominal pain, melena, chest pain, cough, and shortness of breath. Otherwise, ROS are as stated in the HPI, and all others are negative. 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 atorvastatin (LIPITOR) 20 mg Oral Tablet Take 20 mg by mouth daily. glimepiride (AMARYL) 4 mg Oral Tablet Take 2 Tablets by mouth daily. levocetirizine (XYZAL) 5 mg Oral Tablet Take 5 mg by mouth daily. metFORMIN (GLUCOPHAGE) 1,000 mg Oral Tablet Take 1,000 mg by mouth 2 times daily. naproxen (NAPROSYN) 500 mg Oral Tablet Take 1 Tablet by mouth daily. 90 Tablet 1 [DISCONTINUED] naproxen (NAPROSYN) 500 mg Oral Tablet Take 1 Tablet by mouth daily. 90 Tablet 1 olmesartan (BENICAR) 40 mg Oral Tablet Take 40 mg by mouth daily. omeprazole (PRILOSEC) 40 mg Oral Capsule, Delayed Release(E.C.) Take 1 Capsule by mouth daily. 90 Capsule 1 [DISCONTINUED] omeprazole (PRILOSEC) 40 mg Oral Capsule, Delayed Release(E.C.) TAKE 1 CAPSULE BY MOUTH ONCE DAILY 90 Capsule 0 OZEMPIC 2 mg/dose (8 mg/3 mL) SubQ Pen Injector Subcutaneous (Inject under the skin) 2 mg once a week. pioglitazone (ACTOS) 45 mg Oral Tablet Take 45 mg by mouth daily. traMADoL (ULTRAM) 50 mg Oral Tablet Take 1 Tablet by mouth 4 times daily as needed. for pain 120 Tablet 5 [DISCONTINUED] traMADoL (ULTRAM) 50 mg Oral Tablet TAKE 1 TABLET BY MOUTH FOUR TIMES DAILY NEEDED FOR PAIN. 120 Tablet 5 TRUE METRIX GLUCOSE TEST STRIP [facility] [place]ULICITY 3 mg/0.5 mL SubQ Pen Injector 1 'Pen' once a week. UNILET GP LANCET [facility] Objective: Vital Signs: BP 138/88 (BP Location: Left arm, Patient Position: Sitting) Temp 97.2 ??F (36.2 ??C) (Forehead) Ht 5' 8 (1.727 m) Wt 237 lb 6.4 oz (107.7 kg) BMI 36.10 kg/m?? Body mass index is 36.1 kg/m??. Physical Exam CONST: well developed, well nourished, no apparent distress EYES: pupils equal/ round/ sclera white, conjunctiva pink and moist ENT: oropharynx clear without exudates, mucus membranes moist NECK: supple without lymphadenopathy, no thyromegaly, no masses RESP: clear to auscultation bilaterally without wheezes/rhonchi/rales CV: regular rate and rhythm without murmurs/rubs/gallops, no edema/cyanosis/clubbing SKIN: no rash, no indurations, nodules, or tightening. MSK: Refer to Assessment and Plan section for MSK exam Assessment and Plan: MSK: no bony deformities/erythema/warmth/effusion of the hands/ wrists/ elbows/ shoulders/ hips/ knees/ ankles/ toes, full range of motion in the upper and lower extremities Diagnoses and all orders for this visit: Primary generalized (osteo)arthritis Assessment & Plan: Left first CMC joint, third MCP joints, right shoulder, rt elbow, knees, first MTPs. Chronic, pain stable Weight reduction was previously advised. continue tramadol continue naproxen qd Orders: - naproxen (NAPROSYN) 500 mg Oral Tablet; Take 1 Tablet by mouth daily. Dispense: 90 Tablet; Refill: 1 - traMADoL (ULTRAM) 50 mg Oral Tablet; Take 1 Tablet by mouth 4 times daily as needed. for pain Dispense: 120 Tablet; Refill: 5 Lumbar spondylosis Assessment & Plan: Follow-up with pain management Encounter for long-term (current) use of high-risk medication Assessment & Plan: Discussed risks and benefits of NSAIDs. Risks including but not limited to stomachache, gas, bloating, nausea, vomiting, diarrhea, GI bleeding, headache, dizziness, increased risk of cardiovascular even such as heart attacks, stroke, high blood pressure, heart failure and kidney problems were discussed with the patient in detail today. - Recommend patient to take this medication in moderation and if possible avoid taking them on a daily basis. - Patient understands and is willing to continue with this medication Orders: - omeprazole (PRILOSEC) 40 mg Oral Capsule, Delayed Release(E.C.); Take 1 Capsule by mouth daily. Dispense: 90 Capsule; Refill: 1 Long-term current use of opiate analgesic Assessment & Plan: TRAMADOL risks and benefits discussed, including addiction risk, lightheadedness, nausea, sedation,not to take before driving, rash, hypersensitivity. - Verbal consent obtained Responsive to Tramadol, which helps with Pain, Function, and Quality of Life. Social Hx: Retired, Construction Lives in [facility] PCP Moisés Ann APRN Hyperlipidemia Type 2 Diabetes Hypertension NSAIDS Responsive to Naproxen 500 mg Daily ANALGESICS Responsive to Tramadol 50 mg Four Times Daily PRN Controlled Substance Agreement signed 01/10/2025 MED MONITORING Naproxen Today, labs / test results were reviewed by me with patient in the office, dated Pertinent positives and negatives include: WBC: Lab Results Component Value Date WBC 8.2 07/12/2024 Hgb: Lab Results Component Value Date HGB 13.9 07/12/2024 Plts:No results found for: PLT AST: Lab Results Component Value Date AST 17 07/12/2024 ALT: Lab Results Component Value Date ALT 21 07/12/2024 Cr: Lab Results Component Value Date CREATININE 0.95 07/12/2024 Return in about 6 months (around 07/13/2025). * May Stevens APRN - 01/05/2025 12:39 PM EDTAssociated Problem(s): Long-term current use of opiate analgesic TRAMADOL risks and benefits discussed, including addiction risk, lightheadedness, nausea, sedation,not to take before driving, rash, hypersensitivity. - Verbal consent obtained Responsive to Tramadol, which helps with Pain, Function, and Quality of Life. * May Stevens APRN - 01/05/2025 12:39 PM EDTAssociated Problem(s): Encounter for long-term (current) use of high-risk medication Discussed risks and benefits of NSAIDs. Risks including but not limited to stomachache, gas, bloating, nausea, vomiting, diarrhea, GI bleeding, headache, dizziness, increased risk of cardiovascular even such as heart attacks, stroke, high blood pressure, heart failure and kidney problems were discussed with the patient in detail today. - Recommend patient to take this medication in moderation and if possible avoid taking them on a daily basis. - Patient understands and is willing to continue with this medication * May Stevens APRN - 01/05/2025 12:39 PM EDTAssociated Problem(s): Lumbar spondylosis Follow-up with pain management * May Stevens APRN - 01/05/2025 12:38 PM EDTAssociated Problem(s): Primary generalized (osteo)arthritis Left first CMC joint, third MCP joints, right shoulder, rt elbow, knees, first MTPs. Chronic, pain stable Weight reduction was previously advised. continue tramadol continue naproxen qd documented in this encounter Plan of Treatment Upcoming Encounters Date Type Department Care Team (Late st Contact Info) Description 07/13/2025 11:00 AM EST Office Visit [facility] [address] [place] [address] May Stevens APRN [address] [place] [address] documented as of this encounter Visit Diagnoses Diagnosis Primary generalized (osteo)arthritis- Primary Generalized osteoarthrosis, involving multiple sites Lumbar spondylosis Lumbosacral spondylosis without myelopathy Encounter for long-term (current) use of high-risk medication Encounter for long-term (current) use of other medications Long-term current use of opiate analgesic Encounter for long-term (current) use of other medications documented in this encounter Discontinued Medications Medication Sig Discontinue Reason Start Date End Da te naproxen (NAPROSYN) 500 mg Oral Tablet Take 1 Tablet by mouth daily. Reorder 07/12/2024 01/10/2025 traMADoL (ULTRAM) 50 mg Oral Tablet TAKE 1 TABLET BY MOUTH FOUR TIMES DAILY NEEDED FOR PAIN. Reorder 09/27/2024 01/10/2025 omeprazole (PRILOSEC) 40 mg Oral Capsule, Delayed Release(E.C.) TAKE 1 CAPSULE BY MOUTH ONCE DAILY Reorder 12/27/2024 01/10/2025 documented as of this encounter Care Teams Plumber Maintenance Relationship Specialty Start Date End Date Kevin Richards MD [address] [place] [address] Internal Medicine-Rheumatology 05/06/23 documented as of this encounter
[2025-01-20 13:13] LABS: Microscopic, Urine URINE MICROSCOPIC (MICROSCOPIC)
[2025-01-20 13:47] LABS: Hematocrit 42.1 % (42.0-52.0); Hemoglobin 13.6 g/dL (14.1-18.0); Immature Granulocytes % 0.4 %; Mean Corpuscular HGB Conc 32.3 g/dL (31.8-35.4); Mean Corpuscular Hemoglobin 28.0 pg (27.0-31.2); Mean Corpuscular Volume 86.6 fl (80-94); Nucleated Red Blood Cells % 0 %; Platelet Count 276 K/mm3 (142-424); Red Blood Count 4.86 M/mm3 (4.60-6.20); Red Cell Distribution Width-SD 48.1 fL; White Blood Count 5.6 K/mm3 (4.8-10.8)
[2025-01-20 13:48] LABS: Bilirubin,Urine Negative (Negative); Color,Urine YELLOW (Yellow); Glucose,Urine (UA) Negative (Negative); Ketones,Urine Negative (Negative); Leukocyte Esterase,Urine Negative (Negative); PH,Urine 6.0 (5.0-8.5); Protein,Urine TRACE (Negative); Specific Gravity, Urine 1.025 (1.005-1.030); Urobilinogen,Urine 0.2 EU/dl (0.2)
[2025-01-20 14:07] LABS: Alanine Aminotransferase 23 U/L (12-78); Albumin Level 4.3 g/dl (3.5-5.0); Albumin/Globulin Ratio 1.8 (1.1-1.8); Alkaline Phosphatase 84 U/L (38-126); Anion Gap 15.0 mEq/L (5-15); Aspartate Amino Transferase 24 U/L (17-59); Bilirubin,Total 1.1 mg/dl (0.2-1.3); Blood Urea Nitrogen 22 mg/dl (9-20); Calcium 9.6 mg/dl (8.4-10.2); Carbon Dioxide 28 mmol/L (22.0-30.0); Chloride 99 mmol/L (98-107); Creatinine,Serum 0.90 mg/dl (0.66-1.25); Estimated Glomerular Filt Rate 83 ml/min (>60); GFR (African American) 100 ML/MIN (>60); Globulin 2.4 g/dL (1.3-3.2); Glucose 188 mg/dl (74-100); Potassium 5.0 mmoL/L (3.5-5.1); Sodium 137 mmol/L (136-145); Total Protein,Serum 6.7 g/dl (6.3-8.2)
[2025-01-20 14:22] LABS: 25-OH Vitamin D, Total 68.4 ng/mL (30-100)
[2025-01-20 14:25] LABS: Squamous Epithelial Cell,Urine Occasional #/hpf (0-5)
[2025-01-20 14:26] LABS: Bacteria,Urine 1+ /lpf; Mucus,Urine 1+ /lpf
[2025-01-20 14:56] LABS: Vitamin B12 849 pg/mL (239-931)
[2025-01-20 15:55] LABS: Hemoglobin A1C 6.8 % (4.0-6.0)
--- OUTSIDE RECORDS SUMMARY | 2025-01-21 11:29 | XMS_ITS | Clinical Summary ---
Author Organization [facility] Address [address] [place] [address] Phone Care Team Providers Care Supervisor Cleaning And Annealing Name Role Phone Kevin Richards MD Unavailable [phone] Allergies No known active allergies Medications amLODIPine (NORVASC) 5 mg Oral Tablet Take 5 mg by mouth daily. 10/31/19 23 Active atorvastatin (LIPITOR) 20 mg Oral Tablet Take 20 mg by mouth daily. 10/31/19 23 Active TRUE METRIX GLUCOSE TEST STRIP [facility] [place] 10/23/19 23 Active TRULICITY 3 mg/0.5 mL SubQ Pen Injector 1 'Pen' once a week. 07/24/19 23 Active glimepiride (AMARYL) 4 mg Oral Tablet Take 2 Tablets by mouth daily. 10/31/19 23 Active UNILET GP LANCET [facility] 07/16/19 23 Active levocetirizine (XYZAL) 5 mg Oral Tablet Take 5 mg by mouth daily. 10/31/19 23 Active metFORMIN (GLUCOPHAGE) 1,000 mg Oral Tablet Take 1,000 mg by mouth 2 times daily. 10/31/19 23 Active olmesartan (BENICAR) 40 mg Oral Tablet Take 40 mg by mouth daily. 09/01/19 23 Active pioglitazone (ACTOS) 45 mg Oral Tablet Take 45 mg by mouth daily. 10/31/19 23 Active OZEMPIC 2 mg/dose (8 mg/3 mL) SubQ Pen Injector Subcutaneous (Inject under the skin) 2 mg once a week. 03/08/20 24 Active naproxen (NAPROSYN) 500 mg Oral TabletIndicati ons:Primary generalized (osteo)arthrit is Take 1 Tablet by mouth daily. 90 Tablet 1 01/11/20 25 Active traMADoL (ULTRAM) 50 mg Oral TabletIndicati ons:Primary generalized (osteo)arthrit is Take 1 Tablet by mouth 4 times daily as needed. for pain 120 Tablet 5 01/11/20 25 Active omeprazole (PRILOSEC) 40 mg Oral Capsule, Delayed Release(E.C.)I ndications:Enc ounter for long-term (current) use of high-risk medication Take 1 Capsule by mouth daily. 90 Capsule 1 01/11/20 25 Active omeprazole (PRILOSEC) 40 mg Oral Capsule, Delayed Release(E.C.) Take 1 Capsule by mouth daily. 90 Capsule 1 07/12/19 25 025 Discontinued Active Problems Problem Noted Date Diagnosed Date Lumbar spondylosis 05/12/2023 Assessment & Plan (01/05/2025 12:39 PM EDT): Follow-up with pain management Assessment & Plan (08/05/2024 3:45 PM EST): Follow-up with pain management Sciatica of right side 05/12/2023 Rheumatoid arthritis involvi ng multiple sites with positive rheumatoid factor 11/05/2022 Assessment & Plan (08/05/2024 3:45 PM EST): chronic, in clinical remission fu for joint flares Primary generalized (osteo)arthritis 11/05/2022 Assessment & Plan (01/05/2025 12:38 PM EDT): Left first CMC joint, third MCP joints, right shoulder, rt elbow, knees, first MTPs. Chronic, pain stable Weight reduction was previously advised. continue tramadol continue naproxen qd Assessment & Plan (08/05/2024 3:45 PM EST): Left first CMC joint, third MCP joints, right shoulder, rt elbow, knees, first MTPs. Chronic, pain stable Weight reduction was previously advised. continue tramadol continue naproxen qd Encounter for long-term (cur rent) use of high-risk medication 11/05/2022 Assessment & Plan (01/05/2025 12:39 PM EDT): Discussed risks and benefits of NSAIDs. Risks [...] is willing to continue with this medication Low back pain without sciatica 11/05/2022 Long-term current use of opiate analgesic 2022 Assessment & Plan (01/05/2025 12:39 PM EDT): TRAMADOL risks and benefits discussed, including addiction risk, lightheadedness, nausea, sedation, not to take before driving, rash, hypersensitivity. - Verbal consent obtained Responsive to Tramadol, which helps with Pain, Function, and Quality of Life. Encounters Date Type Department Care Team Description 01/10/2025 11:30 AM EDT [facility] [address] [place] [address] May Stevens APRN Primary generalized (osteo)arthritis (Primary Dx); Lumbar spondylosis; Encounter for long-term (current) use of high-risk medication; Long-term current use of opiate analgesic 12/24/20[facility] [address] [place] [address] Kevin Richards MD Medication Refill from Last 3 Months Surgical History Surgery Date Site/Laterality Comments HERNIA REPAIR Medical History Medical History Date Comments Rheumatoid arthritis (HCC) Osteoarthritis Type 2 diabetes mellitus with retinopathy withou t macular edema (HCC) Essential (primary) hypertension Family History Medical History Relation Name Comments Cancer Father Diabetes Mother Relation Name Status Comments Father Mother Social History Tobacco Use Types Packs/Day Years Used Date Smoking Tobacco: Never Smokeless Tobacco: Current Chew Tobacco Cessation:Ready to Q uit: Not Asked; Counseling Given: Not Answered Sex and Gender Information Value Date Recorded Sex Assigned at Not on file Legal Sex Male 11:21 AM EST Gender Identity Not on file Sexual Orientation Not on file Obstetrics History Last Filed Vital Signs Vital Sign Reading [...] Mass Index 36.1 01/10/2025 11:26 AM EDT Plan of Treatment Upcoming Encounters Date Type Department Care Team (Late st Contact Info) Description 07/13/2025 11:00 AM EST Office Visit [facility] [address] [place] [address] May Stevens, STEEL ANALYST [address] [place] [address] Health Maintenance Due Date Last Done Comments Wellness Exam Medicare 1953 Hepatitis C Screening 1969 Cologuard 1996 Colon Cancer Screening 1996 Colonoscopy 1996 FIT 1996 Sigmoidoscopy 1996 Virtual Colonography 1996 Zoster (1 of 2) 2001 Pneumococcal Vaccine 50+ (2 of 2 - PCV) 06/16/2017 06/16/2016 COVID-19 Vaccine (1 - 2023-2 5 season) 2024 Influenza Vaccine (#1) 2025 , 03/28/2023, 07/05/2016 DTaP/TDaP/Td (2 - Td or Tdap) 11/18/2032 11/18/2022 Hepatitis B Vaccine Aged Out No longe r eligible based on patient's age to complete this topic Meningococcal B Vaccine Aged Out No l onger eligible based on patient's age to complete this topic Insurance [employer] MEDICARE HMO MR Care Teams Supervisor Cleaning And Annealing Relationship Specialty [place] [address] [place] [phone] Internal Medicine-Rheumatology 05/06/23
--- OUTSIDE RECORDS SUMMARY | 2025-01-21 11:29 | XMS_ITS | Encounter Summary ---
Author Organization [facility] Address [address] [place] [address] Care Team Providers Care Banking Analyst Name Role Phone Kevin Richards MD Unavailable [phone] Reason for Visit * Reason Comments Medication Refill Encounter Details Date Type Department Care Team (Late st Contact Info) Description 12/24/2024 Refill [facility] [address] [place] [address] Kevin Richards MD [address] [place] [address] Medication Refill Social History Tobacco Use Types Packs/Day Years Used Date Smoking Tobacco: Never Smokeless Tobacco: Current Chew Sex and Gender Information Value Date Recorded Sex Assigned at Not on file Legal Sex Male 11:21 AM EST Gender Identity Not on file Sexual Orientation Not on file documented as of this encounter Ordered Prescriptions Prescription Sig Dispense Quantity Refills Last Filled Start Date End Date omeprazole (PRILOSEC) 40 mg Oral Capsule, Delayed Release(E.C.) TAKE 1 CAPSULE BY MOUTH ONCE DAILY 90 Capsule 12/27/2024 documented in this encounter Miscellaneous Notes * Telephone Encounter - Katherine Palacios MA - 12/27/2024 8:37 AM EDT LCV: 07/12/24 Notes state omeprazole (PRILOSEC) 40 mg Oral Capsule, Delayed Release(E.C.); Take 1 Capsule by mouth daily. NCV: 01/10/25 Last Sent: 07/12/24 90 capsules with 1 refill Medication sent to [facility] pharmacy in [place], [place] documented in this encounter Plan of Treatment Upcoming Encounters Date Type Department Care Team (Late st Contact Info) Description 07/13/2025 11:00 AM EST Office Visit [facility] [address] [place] [address] May Stevens APRN [address] [place] [address] documented as of this encounter Visit Diagnoses Not on filedocumented in this encounter Discontinued Medications Medication Sig Discontinue Reason Start Date End Da te omeprazole (PRILOSEC) 40 mg Oral Capsule, Delayed Release(E.C.) Take 1 Capsule by mouth daily. 07/12/2024 12/27/2024 documented as of this encounter Care Teams Banking Analyst Relationship Specialty Start Date End Date Kevin Richards MD [address] [place] [id number] Internal Medicine-Rheumatology 05/06/23 documented as of this encounter
== END 2025-01-20 23:59 | disposition home or self-care (01) ==
LOC: LAB.DROPOF 01-21 11:26
PROVIDERS: PCP Nurse Practitioner Family; Visit Provider Nurse Practitioner Family
DX: Z00.00 Encounter for general adult medical examination without abnormal findings (principal); E78.5 Hyperlipidemia, unspecified; Z12.5 Encounter for screening for malignant neoplasm of prostate; R80.9 Proteinuria, unspecified; E55.9 Vitamin D deficiency, unspecified; E11.9 Type 2 diabetes mellitus without complications; I10 Essential (primary) hypertension; M06.9 Rheumatoid arthritis, unspecified; E87.5 Hyperkalemia; R41.3 Other amnesia
CPT/HCPCS: 80053; 81001; 82043; 82306; 82570; 82607; 83036; 84156; 85025; 87086; G0103

== ENCOUNTER 2025-04-20 09:50 | Outpatient (CLI) | payer MEDICARE, SELFPAY ==
[2025-04-20 13:17] LABS: Anion Gap 13.8 mEq/L (5-15); Blood Urea Nitrogen 25 mg/dl (9-20); Calcium 9.2 mg/dl (8.4-10.2); Carbon Dioxide 27 mmol/L (22.0-30.0); Chloride 98 mmol/L (98-107); Cholesterol 108 mg/dl (140-200); Creatinine,Serum 1.00 mg/dl (0.66-1.25); Estimated Glomerular Filt Rate 73 ml/min (>60); GFR (African American) 89 ML/MIN (>60); Glucose 161 mg/dl (74-100); HDL Cholesterol 36 mg/dl (40-60); Potassium 4.8 mmoL/L (3.5-5.1); Sodium 134 mmol/L (136-145); Triglycerides 116 mg/dl (30-150)
[2025-04-20 14:37] LABS: Hemoglobin A1C 7.1 % (4.0-6.0)
--- OUTSIDE RECORDS SUMMARY | 2025-04-21 19:37 | XMS_ITS | Data Portability ---
Author Organization LEEANNA PARRISH [facility] Address [address] [address] [place] [address] Care Team Providers Care Building Trades Instructor Name Role Phone CAIN SULLIVAN Primary Care Provider Assessment Encounter Date Assessment Date Assessment LastModified by Organization Details LastModified Time 04/24/2018 04/24/2018 Mr. Cisse is a 67-year-old gentleman with mechanical back pain, neurogenic claudication, and right leg radiculopathy. I personally reviewed the MRI of his lumbar spine which shows multilevel degenerative changes, worse at the L4-5 level where there is anterolisthesis of L4 on L5 with severe canal and severe bilateral neural foraminal stenosis. He also has severe facet arthropathy at this level as well as the L5-S1 level where there is a left-sided synovial cyst contributing to neuro foraminal stenosis and canal stenosis.at this time, the patient would like to exhaust all conservative measures including physical therapy and injections and therefore I will send him for those today. I suspect that he will need L4-5 and L5-S1 posterior lumbar interbody fusion. I will see him back 4 weeks time with flexion extension x-rays of the lumbar spine. [email or web address] Not available 04/24/2018 13:25:26 05/22/2018 05/22/2018 Mr. Cisse is a 67 year old man with L4/5 spondylolisthesis and L5/S1 stenosis with synovial cyst. I have personally reviewed his MRI which shows multilevel degenerative changes, worse at L4/5 and L5/S1. He has had improvement in his symptoms with conservative management including physical therapy and would like to continue conservative management to see how much continued relief he will get. I will see him back in 4 weeks time for repeat evaluation. If his symptoms have worsened or plateaued and still affecting his mobility, he would be a candidate for a posterior lumbar interbody fusion. [email or web address] Not available 05/25/2018 10:12:44 Plan of Treatment Reminders Order Date Submit Date Provider Last Modified By Organization Details Last Modified Time Details Appointments None recorded. Lab None recorded. Referral None recorded. Procedures None recorded. Surgeries None recorded. Imaging None recorded. Medication Orders Ciprodex 0.3 %-0.1 % ear drops,susp ension 2021 022 [email or web address] [facility], [address], [address], 17:28:34 Patient TargetsNo targets recorded. Patient Instructions Encounter Date Encounter Id Patient Instructions Last Modified By Organization Details Last Modified Time 04/24/2018 [id number] spondylolysis an d spondylolisthesis: exercises [email or web address] Not available 04/24/2018 13:25:27 12/18/2021 [id number] 1. Rx- Ciprodex drops- 4 drops in the right ear bid x 7 days 2. Dry ear precautions recommended. 3. F/u in 4 weeks with audiogram. [email or web address] Not available 12/18/2021 17:01:05 01/15/2022 [id number] 1. Audiogram obtained today- Type B tymps bilaterally, 60dbs in the right, 45dbs in the left, Bilateral mild to profound mixed hearing loss-his infection has cleared we will continue to monitor his ears on a regular basis. Water precautions were again recommended 2. Discussed bone anchored hearing aid- patient is not interested at this time 3. F/u in 12 month [email or web address] Not available 01/15/2022 17:02:06 Reason for Referral None Reported. Results Created Date Observation Date Name Description Value Unit Range Abnormal Flag Note LastModifiedBy Organization Detail LastModifiedTime 04/16/20 18 MRI, lumba r spine , w/o contr ast No observ ation record ed. [email or web address] Not Available 2017 10:16:51 04/24/20 18 04/24/2018 XR, lumbo sacra l spine , 2 or 3 view, bendi ng only [facility] [address] [place] [address], [place] [address] Theresa hurtado Name: AMOS hurtado : 1949 Theresa hurtado 2 Orderi ng Provid er: ROMA RODRIGUEZ JR EXAM DATE: 2017 EXAM: XR LUMBAR SPINE FLEX/E XT ONLY CLINIC AL INFORM ATION: Back pain. IMAGES PROVID ED: Latera l views of the lumbar spine in flexio n and extens ion. COMPAR DIANDRA: None. FINDIN GS: Verteb ral body height s are normal . Multil evel disc space reduct ion is seen with anteri or and latera l osteop hytes. There is grade 1 amie listhe sis of L4 over L5. It measur es 3 mm in flexio n and in extens ion. Mild degene rative change s are seen in the lower lumbar facet joints . No radiog raphic eviden ce of injury is noted. IMPRES ANITA: Degene rative change s of the lumbar spine with alignm ent abnorm ality at L4-L5. No instab ility. Interp reted By: Nelson Grant MD Electr onical ly Signed By: Nelson Grant MD on 018 12:33 PM [email or web address] [facility] [address], [address], 04/24/2018 14:10:23 01/23/20 22 01/15/2022 audio gram No observ ation record ed. BARCODE Not Available 2021 16:51:06 Result Notes Documentation Provider Name and Address Organization Details Recorded Time Xr, Lumbosacral Spine, 2 Or 3 View, Bending Only : [address] [address] Patient Name: AMOS CISSE SR Patient : 1950 Patient Ordering Provider: ROMA RODRIGUEZ JR EXAM DATE: 04/24/2018 EXAM: XR LUMBAR SPINE FLEX/EXT ONLY CLINICAL INFORMATION: Back pain. IMAGES PROVIDED: Lateral views of the lumbar spine in flexion and extension. COMPARISON: None. FINDINGS: Vertebral body heights are normal. Multilevel disc space reduction is seen with anterior and lateral osteophytes. There is grade 1 anterolisthesis of L4 over L5. It measures 3 mm in flexion and in extension. Mild degenerative changes are seen in the lower lumbar facet joints. No radiographic evidence of injury is noted. IMPRESSION: Degenerative changes of the lumbar spine with alignment abnormality at L4-L5. No instability. Interpreted By: Johny Grant MD RODRIGUEZ JR, MD [address] [place] [address], [phone], [facility] 04/24/2018 14:10:23 Problems No Known Problems Procedures Surgical History Date Name Laterality Status Provider Name and Address Organization Details Recorded Time 01/16/20 22 Tympanogram completed EDWARD NASH , [address] [place], [address] 01/15/2022 15:26:51 01/16/20 22 Audiogram completed EDWARD NASH [address] [address] [place], [address] 01/15/2022 15:27:07 Hernia repair w/mesh completed Candace Kat [facility] 04/24/2018 09:23:52 [facility] 16:28:36 procedure on heart completed Julia Arredondo [facility] 12/18/2021 16:28:49 Appendectomy completed Julia Arredondo [facility] 12/18/2021 16:28:55 Imaging Results None recorded. Procedure Notes None recorded. Medical Equipment None Reported. Allergies No known drug allergies Medications Name Sig Start Date Stop Date Status Note LastModified by Organization Details LastModified Time atorvastati n 20 mg tablet active Not Available Not Available Not Available trazodone 50 mg tablet 12/18 completed Not Available Not Available Not Available hydrocodone 5 mg-acetamin ophen 325 mg tablet 12/18 completed Not Available Not Available Not Available pioglitazon e 45 mg tablet active Not Available Not Available Not Available amlodipine 5 mg tablet active Not Available Not Available Not Available hydrocodone 10 mg-acetamin ophen 325 mg tablet 12/18 completed Not Available Not Available Not Available omeprazole 40 mg capsule,del ayed release active Not Available Not Available Not Available tramadol 50 mg tablet TAKE ONE TABLET BY MOUTH 4 TIMES A DAY NEEDED MAY CAUSE DROWSINES S active Not Available Not Available No t Available methotrexat e sodium 2.5 mg tablet 12/18 completed Not Available Not Available Not Available metformin 1,000 mg tablet active Not Available Not Available Not Available glimepiride 4 mg tablet active Not Available Not Available Not Available telmisartan 80 mg tablet 12/18 completed Not Available Not Available Not Available valsartan 320 mg tablet 12/18 completed Not Available Not Available Not Available furosemide 20 mg tablet 12/18 completed Not Available Not Available Not Available gabapentin 100 mg capsule 12/18 completed Not Available Not Available Not Available losartan 100 mg tablet 12/18 completed Not Available Not Available Not Available naproxen 500 mg tablet active Not Available Not Available Not Available olmesartan 40 mg tablet active Not Available Not Available Not Available ciprofloxac in 0.3 %-dexametha sone 0.1 % ear drops,suspe nsion Instill by otic route for 10 days. 2022 active Not Available Not Available Not Avai lable Januvia 100 mg tablet 12/18 completed Not Available Not Available Not Available levocetiriz ine 5 mg tablet active Not Available Not Available Not Available Jardiance 10 mg tablet 12/18 completed Not Available Not Available Not Available Jardiance 25 mg tablet 12/18 completed Not Available Not Available Not Available True Metrix Glucose Test Strip TEST EVERY DAY 12/18 completed Not Available Not Available Not Available Trulicity 3 mg/0.5 mL subcutaneou s pen injector active Not Available Not Available Not Available Trulicity 4.5 mg/0.5 mL subcutaneou s pen injector INJECT DIRECTED ONCE WEEKLY 12/18 completed Not Available Not Available Not Available Vitals Date Recorded Body height Body mass index (BMI) Body weight Body temperature Heart rate Oxygen saturation Oxygen saturation in Arterial blood by Pulse oximetry Systolic And Diastolic Provider Name and Address Organization Details Last Updated DateTime 2 172.72 cm 36.2 kg/m2 370706. 38 g 98.7 [degF] 90 /min 97 % 97 % 153/80 mm[Hg] Julia Arredondo [facility] 2 16:36:16 Date Recorded Body height Body mass index (BMI) Body weight Body temperature Heart rate Systolic And Diastolic Provider Name and Address Organization Details Last Updated DateTime 2 172.72 cm 36.7 kg/m2 469477. 16 g 97.2 [degF] 92 /min 147/73 mm[Hg] Mira Blunt [facility] 2 14:59:54 Date Recorded Body height Body mass index (BMI) Body weight Systolic And Diastolic Provider Name and Address Organization Details Last Updated DateTime 04/24/2018 172.72 cm 37.1 kg/m2 713534.54 g 118/76 mm[Hg] Candace Kat [facility] 04/24/2018 09:22:52 Date Recorded Body height Body mass index (BMI) Body weight Systolic And Diastolic Provider Name and Address Organization Details Last Updated DateTime 05/22/2018 172.72 cm 37.1 kg/m2 875171.54 g 152/72 mm[Hg] Candace Kat [facility] 05/22/2018 09:50:32 Social History Question Answer Notes LastModified by Zipidee ion Details LastModified Time How Many Years Have You Smoked Tobacco? 50 1/2 Pack Of Chew [email or web address] Information not available 04/24/2018 Sex: Unknown Functional Status None recorded. Mental Status None recorded. Family History Relationship Description Onset Age of this Age Resolved Age Notes LastModified by Organization Details LastModified Time Father Family history of malignant neoplasm [email or web address] Not available 2021 16:29:05 Brother Family history of malignant neoplasm [email or web address] Not available 2021 16:29:05 Brother Hearing loss Not avai lable 12/18/2021 16:29:16 Brother Diabetes mellitus [email or web address] Not available 2021 16:29:41 Mother Hearing loss Not avail able 12/18/2021 16:29:16 Mother Heart disease [email or web address] Not available 2021 16:29:24 Mother Hypertensive disorder [email or web address] Not available 2021 16:29:30 Mother Diabetes mellitus [email or web address] Not available 2021 16:29:41 Sister Diabetes mellitus [email or web address] Not available 2021 16:29:41 Medical History Condition Response Gout Y Diabetes Y Arthritis Y Hypertension Y Past Encounters Encounter ID Performer Location Encounter Start Date Encounter Closed Date Diagnosis/Indication Diagnosis SNOMED-CT Code Diagnosis ICD10 Code Diagnosis IMO Codes Diagnosis Note [id number] ROMA RODRIGUEZ JR, MD [facility] [address] [place] [address] 04/24/2018 09:07:54 04/28/2018 15:40:34 Spondylolisthesis 883413007 M43.10 [id number] ROMA RODRIGUEZ JR, MD [facility] [address] [place] [address] 05/22/2018 09:40:46 05/28/2018 11:47:46 Lumbar spondylolisthesis 2384109082 58594 M43.16 [id number] MD LEEANNA BARRAZA III [facility] [address] [place] [address] 12/18/2021 16:17:02 12/18/2021 17:02:37 Acute right mastoiditis 8232109280 805160 H70.001 Granulatio ns of mastoid cavity 009208548 H74.8X9 Chronic mastoiditis 8064 5004 H70.13 Denture present 47025346 5 Z97.2 [id number] MD LEEANNA BARRAZA [facility] [address] [place] [address] 01/15/2022 14:36:00 01/16/2022 08:03:51 Chronic mastoiditis 48222920 H70.13 Denture present 07716071 5 Z97.2 Dysfunctio n of right eustachian tube 9412197097 208686 H69.91 - Retained tympanosto my tube (placed many years ago) Mixed cond uctive and sensorineural hearing loss, bilateral 836953880 H90.6 Retraction of tympanic membrane 34599171 H73.892 [id number] EDWARD BRIAN CRENSHAW AUD [place] [facility] [address] [place] [address] 01/15/2022 15:01:39 01/15/2022 15:41:44 Mixed conductive and sensorineural hearing loss, bilateral 754655941 H90.6 Dysfunctio n of bilateral eustachian tubes 5745873281 939049 H69.93 Health Concerns Section Related Observation LastModified by Organization Detai ls LastModified Time None Recorded Concern Status LastModified by Organization Details LastModified Time None Recorded Advance Directives Directive None Recorded Payers Insurance Date Sequence Insurance Name Policy Number Policy Mckeon Covered Member ID Mckeon Member ID Guarantor Name 01/13/2022 2 [employer] (MEDICARE SUPPLEMENT) Amos Cisse [id number] Amos Cisse 01/13/2022 2 [place] Amos Pizano Betito [id number] Amos Pizano Betito 01/13/2022 2 [employer] [place] (MEDICARE SUPPLEMENT) Amos Pizano Betito [id number] Amos Pizano Betito 01/22/2022 1 [employer] - GOLD PLUS (MEDICARE REPLACEMENT/A DVANTAGE - HMO) Amos Pizano Betito [id number] Amos Cisse Notes Date Note Type Note Provider Name and Address Organization Details Recorded Time 04/24/2018 text/html I am seeing Mr. Cisse in consultation today at the request of Dr. Sullivan, for evaluation of low back pain. Yoan phan is a 67-year-old gentleman with a long history of back pain, worsening over the past 2 months. He says 2 months ago he had sudden onset of severe low back pain and right leg pain. He says the pain radiates down the right leg into the lateral hughes and into the top of the foot and great toe. She rates the pain is in the tendons describes it as a deep ache with spasms in his back with a burning sharp shooting pain down the leg. He says the pain comes and goes, and is worsened with walking. Walking causes both legs to feel weak, numb, and give out. He says sitting or recumbency causes his symptoms to get better. He has tried to stay active at home however he has been unable to be active secondary to pain. He has also tried Neurontin without any help. ROMA RODRIGUEZ JR, MD [address] [place] [address], [phone], [facility] 04/24/2018 13:25:40 05/22/2018 text/html I am seeing Mr. Cisse in follow up. Mr. Cisse is a 67 year old man with a history of low back pain, neurogenic claudication, with right leg pain and imaging showing L4/5 spondylolisthesis and severe bilateral neuroforaminal stenosis with synovial cyst at the L5/S1 level causing nerve compression. I sent him for physical therapy and injections and he returns today. Previously, his pain radiated down the legs into the lateral hughes and top of the foot. The pain would come and go, and worsened with walking. Since he has had physical therapy, his symptoms seem to have improved with no leg pain and only mild low back pain. ROMA RODRIGUEZ JR, MD [address] [place] [address], [phone], [facility] 05/25/2018 10:12:49 12/18/2021 text/html Amos comes in today for consultation at the request of Dr. Cain Sullivan for an evaluation of chronic bilateral mastoiditis. His right ear is symptomatic today. His hearing is down in both ears right > left. He has not been treated with recent antibiotic drops but does keep dry ear precautions in both ears. He had bilateral mastoidectomy several year ago (right in 1989 and left in 2005) and used to be under the care of Dr. Lazarus Vicente. Dr. Lyn did his left mastoid procedure and surgical pathology was consistent with cholesteatoma. CHARLES SUMNER III, MD [address] [place] [address], [phone], [facility] 12/18/2021 17:20:12 01/15/2022 text/html Mr. Cisse returns today in follow up of acute right mastoiditis. He was initially seen on 12/18/21 and treated with Ciprodex drops. His hearing is down in both ears right > left. He does keep dry ear precautions in both ears. He had bilateral mastoidectomy several year ago (right in 1989 and left in 2005) and used to be under the care of Dr. Lazarus Vicente. Dr. Lyn did his left mastoid procedure and surgical pathology was consistent with cholesteatoma. He does not hear well in either ear, and has a retained tube in the right ear which has been present for many years now. Mr. Cisse reports his right ear feels much better since treament. CHARLES SUMNER III, MD [address] [place] [address], [phone], [facility] 01/15/2022 17:02:19
== END 2025-04-20 23:59 | disposition home or self-care (01) ==
LOC: LAB.DROPOF 04-21 19:35
PROVIDERS: PCP Nurse Practitioner Family; Visit Provider Nurse Practitioner Family
DX: E87.5 Hyperkalemia (principal); E11.9 Type 2 diabetes mellitus without complications; E78.5 Hyperlipidemia, unspecified; I10 Essential (primary) hypertension
CPT/HCPCS: 80048; 80061; 83036